=== PATIENT | male | born 1995 | race Caucasian/White ===

== ENCOUNTER 2025-08-19 11:32 | Emergency (ER) | payer OTHER, SELFPAY ==
[2025-08-19 11:36] VITALS: BP 121/87
[2025-08-19] MEDS: NSS 1000 IV ×2 (12:28→14:04)
[2025-08-19] MEDS: TORADOL 15 MG IV (12:28)
[2025-08-19] MEDS: ZOFRAN 4 MG IV (12:28)
[2025-08-19 12:43] LABS: Hematocrit 44.0 % (39.0-52.0); Hemoglobin 15.6 g/dL (13.0-18.0); Mean Corp Hgb Conc. 35.5 g/dL (33.0-37.0); Mean Corpuscular Volume 84.3 fL (80.0-94.0); Nucleated Red Blood Cells % 0 % (-); Platelet Count 199 10^3/uL (130-400); Red Cell Dist. Width 12.3 % (11.5-14.5)
--- NOTE | 2025-08-19 12:55 | ED.GENMED ---
History of Present Illness
General
Chief Complaint: Abdominal Symptoms
Time Seen by Provider: 08/19/25 11:39
History of Present Illness
History of Present Illness:
30-year-old male without significant past medical history presenting for abdominal discomfort with nausea, vomiting, diarrhea. Patient reports that he woke up this morning around 2 AM with symptoms. Notes that he went out to dinner last evening,
ate a lot of fatty and deep-fried food, which she believes could have contribute to his symptoms. Also notes that he did drink alcohol yesterday, had about 6 beers. Denies any history abdominal surgeries. Reports generalized upper abdominal
discomfort. Denies chest pain or difficulty breathing. Denies fever. Denies known sick contacts. Denies additional acute medical complaints
Phy Exam
Physical Exam
Physical Exam:
General: Well-appearing, no clinical signs of dehydration, nontoxic and in no acute distress
HEENT: protecting airway
Neck: appears supple
CV: Normal heart rate, regular rhythm
Resp: No accessory muscle use, no increased work of breathing
Abd: Soft and non-distended, no focal tenderness. Mild discomfort to the upper abdomen without rebound or guarding
Extremities: No deformities, no swelling
Neuro: alert, no focal neurologic deficit
: deferred
Rectal: deferred
Psych: Normal affect
Skin: Intact
Course
Orders/Labs/Results
Orders:
Orders
08/19/25 12:14
0.9% Sodium Chloride 1000 ml [Nss] 1,000 ml IV BOLUS
Ketorolac [Toradol] 15 mg IV NOW STA
Ondansetron Injectable [Zofran] 4 mg IV NOW STA
08/19/25 12:28
Complete Blood Count/With Diff Urgent
Comprehensive Metabolic Panel Urgent
Lipase Urgent
Urinalysis Reflex To Culture Urgent
Date Specimen was Collected: 08/19/25
Time Specimen was Collected: 12:18
Urine Microscopic Reflex Cult Urgent
Urine Culture Urgent
DLEL Source: U
Specimen Description:
Date Specimen was Collected: 08/19/25
Time Specimen was Collected: 12:18
08/19/25 13:51
0.9% Sodium Chloride 1000 ml [Nss] 1,000 ml IV BOLUS
Abnormal Lab Results
08/19/25
12:28
Abs Immat Gran (auto) 0.1 H 10^3/uL
(0-0.05)
Absolute Neuts (auto) 8.8 H 10^3/uL
(1.4-6.5)
Absolute Lymphs (auto) 0.6 L 10^3/uL
(1.2-3.4)
Neutrophils % 87.9 H %
(42.2-75.2)
Lymphocytes % 6.2 L %
(20.5-51.1)
Glucose 115 H mg/dl
(70-99)
Total Protein 8.5 H g/dl
(6.3-8.2)
Albumin 5.1 H g/dl
(3.5-5.0)
Urine Ketones 1+ A
(Negative)
Ur Occult Blood Reflex 1+ A
(Negative)
Urine Bilirubin 1+ A
(Negative)
Leukocyte Esterase Rfl 1+ A
(Negative)
Urine Albumin (Reflex) 2+ A
(Neg - Trace)
08/19/25 12:28
08/19/25 12:28
Vital Signs
Initial and Last Documented VS:
Initial Vital Signs
Temp Pulse Resp BP Pulse Ox
98.1 F 97 20 121/87 98
08/19/25 11:36 08/19/25 11:36 08/19/25 11:36 08/19/25 11:36 08/19/25 11:36
Last Documented Vital Signs
Temp Pulse Resp BP Pulse Ox
98.1 F 97 20 121/87 98
08/19/25 11:36 08/19/25 11:36 08/19/25 11:36 08/19/25 11:36 08/19/25 12:58
MDM/Problems Addressed
MDM/Problems Addressed:
30-year-old male presenting for nausea, vomiting, diarrhea. Vital signs on arrival are normal.
On exam patient is resting comfortably, no acute distress or discomfort. Patient afebrile, nontoxic. No significant tenderness to the abdomen, soft and nondistended. Symptoms appear most consistent with viral gastroenteritis. Without present
indication for advanced imaging at this time. Will screen with laboratory analysis and treat patient therapeutically with IV fluids, Zofran, Toradol and reassess for improvement
14:00 - Patient's labs are unremarkable. On reassessment patient notes that he is feeling better. He is requesting another liter of fluids. Will administer and also p.o. challenge will plan for discharge with continued outpatient supportive
therapy.
*Pulse Oximetry
SaO2: 98
Oxygen Mode of Delivery: Room air
Patient hypoxic: no
*Critical Care Note
Total Time (30-74mins, 75-104mins- exclusive of procedures): Not Applicable
ED Attending Note
-
Portions of this chart may have been created with voice recognition software.� Occasional wrong word or��sound alike� substitutions may have occurred due to the inherent limitations of voice recognition software.
Discharge Plan
Departure
Referrals:
Aureliano Galvez DO [Family Provider]
Interventions
Interventions:
*Risk Screen - Suicide Last Done: 08/19/25 11:36
*General Assessment Last Done: 08/19/25 11:36
*Neglect/Abuse Screening Last Done: 08/19/25 11:36
*ED COVID-19 Vaccine History Last Done: 08/19/25 11:36
*ED Influenza Vaccine History Last Done: 08/19/25 11:36
QO-Ftahub-[place] Assessment Last Done: 08/19/25 11:45
Discharge Date and Time
Print Language: FRISIAN
[2025-08-19 13:02] LABS: ALT (SGPT) 32 U/L (0-50); AST (SGOT) 31 U/L (17-59); Albumin 5.1 g/dl (3.5-5.0); Alkaline Phosphatase 98 U/L (38-126); Blood Urea Nitrogen 13 mg/dl (9-20); Calcium 10.0 mg/dl (8.4-10.2); Carbon Dioxide 29 mmol/L (22-30); Chloride 102 mmol/L (98-107); Glucose 115 mg/dl (70-99); Lipase 39 U/L (23-300); Potassium 3.5 mmol/L (3.5-5.1); Sodium 139 mmol/L (135-145); Total Protein 8.5 g/dl (6.3-8.2); eGFR > 60.00
[2025-08-19 13:39] LABS: Urine Character Clear (Clear)
[2025-08-19 13:56] LABS: Urine Urothelial Cell 0-2 /LPF (FEW)
[2025-08-19 13:58] LABS: Urine Red Blood Cell 0-2 /HPF (0-2)
[2025-08-19 15:27] VITALS: BP 122/74
== END 2025-08-19 15:42 | disposition home or self-care (01) ==
LOC: EMR 11:32
PROVIDERS: EMERGENCY PHYSICIAN Student in an Organized Health Care Education/Training Program; FAMILY PHYSICIAN Family Medicine
DX: A08.4 Viral intestinal infection, unspecified (principal)
CPT/HCPCS: 99284; 96374; 96375; 96361 ×2; 80053; 81003; 81015; 83690; 85025; 87086